=== PATIENT | female | born 1930 | race Caucasian/White ===

== ENCOUNTER 2017-09-01 17:38 | Inpatient (IN) | payer OTHER ==
[~2017-09-01] VITALS: Ht 160 cm; Wt 77.8 kg
[~2017-09-01 17:38] MED LIST: AMLODIPINE BESY1 C12 PO; AMO500 PO; APAP/HYDROCODON1 T13 PO; ASPIR LOW81 MG PO; BAY PO; CIP500 PO; COL100 PO; DYA PO; FLA250 PO; IMD60 PO; IMO2 PO; LAC PO; LIPI20 PO; MOT800 PO; NOR10 PO; PHEL PO; PRI20 PO; TEN50 PO; XAN25 PO; XOPENEX; XOPENEX HF0.045 MG/1 INH; ZOCOR40 MG PO; ZOS2I IV
[2017-09-01 17:39] VITALS: Ht 160 cm; Wt 77.8 kg
[2017-09-01 21:32] LABS: CALCIUM 8.4 mg/dL (8.5-10.1); CARBON DIOXIDE 28.6 mmol/L (21-32); CHLORIDE SERUM 88 mmol/L (98-107); CREATININE SERUM 1.2 mg/dL (0.6-1.0); GLUCOSE SERUM 131 mg/dL (74-106); POTASSIUM SERUM 3.2 mmol/L (3.5-5.1); SODIUM SERUM 127 mmol/L (136-145)
[2017-09-01 21:33] LABS: BASOPHIL % 0.2 % (0-2); PLATELET COUNT 260 x10^3mcL (130-400); RED CELL DISTRIBUTION WIDTH 12.8 % (11.5-14.5)
[2017-09-01 21:37] LABS: ALBUMIN 3.4 g/dL (3.4-5.0); ALKALINE PHOSPHATASE 106 U/L (46-116); ALT/SGPT 25 U/L (14-59); AST/SGOT 25 U/L (15-37); BILIRUBIN TOTAL 0.5 mg/dL (0.20-1.00); TOTAL PROTEIN, SERUM 7.2 g/dL (6.4-8.2)
[2017-09-01] MEDS ORDERED: GOOD SENSE OMEP20 MG PO (22:27)
[2017-09-01] MEDS ORDERED: XOPENEX HF0.045 MG/1 INH (22:27)
[2017-09-01] MEDS ORDERED: FLOVENT HF0.11 MG/A1 INH (22:27)
[2017-09-01 22:53] LABS: MAGNESIUM 1.9 mg/dL (1.8-2.4); PHOSPHOROUS 3.2 mg/dL (2.5-4.9)
[2017-09-01 22:54] LABS: CHOLESTEROL/HDL RATIO 2.3
[2017-09-01 23:05] LABS: FREE T4 2.38 ng/dL (0.76-1.46); FREE THYROXINE INDEX 3.4 ug/dL (1.4-4.5); T4(THYROXINE) 8.4 ug/dL (4.7-13.3)
[2017-09-01 23:15] LABS: T3 TOTAL 0.76 ng/mL
[2017-09-02] VITALS (7 sets, daily range): BP systolic 114–154; BP diastolic 41–55
[2017-09-02 06:40] LABS: BASOPHIL % 0.3 % (0-2); PLATELET COUNT 251 x10^3mcL (130-400); RED CELL DISTRIBUTION WIDTH 12.9 % (11.5-14.5)
[2017-09-02 06:46] LABS: CALCIUM 8.1 mg/dL (8.5-10.1); CARBON DIOXIDE 25.4 mmol/L (21-32); CHLORIDE SERUM 91 mmol/L (98-107); GLUCOSE SERUM 135 mg/dL (74-106); MAGNESIUM 1.9 mg/dL (1.8-2.4); PHOSPHOROUS 2.8 mg/dL (2.5-4.9); POTASSIUM SERUM 3.4 mmol/L (3.5-5.1); SODIUM SERUM 125 mmol/L (136-145)
[2017-09-02 14:26] LABS: UA SPECIFIC GRAVITY <=1.005 (1.005-1.035); microscopic required? YES; urine erythrocyte TRACE (NEGATIVE)
[2017-09-03 05:50] VITALS: BP 117/51
[2017-09-03 07:09] LABS: BASOPHIL % 0.7 % (0-2); PLATELET COUNT 261 x10^3mcL (130-400); RED CELL DISTRIBUTION WIDTH 13.1 % (11.5-14.5)
[2017-09-03 07:37] LABS: CALCIUM 8.5 mg/dL (8.5-10.1); CHLORIDE SERUM 95 mmol/L (98-107); CREATININE SERUM 0.7 mg/dL (0.6-1.0); GLUCOSE SERUM 115 mg/dL (74-106); MAGNESIUM 1.9 mg/dL (1.8-2.4); PHOSPHOROUS 2.6 mg/dL (2.5-4.9); POTASSIUM SERUM 4.1 mmol/L (3.5-5.1); SODIUM SERUM 129 mmol/L (136-145)
[2017-09-03 09:33] VITALS: BP 131/46
[2017-09-03 14:14] VITALS: BP 126/62
[2017-09-03] MEDS ORDERED: XARELTO20 M1 PO (15:20)
[2017-09-03 15:35] VITALS: BP 126/62
[2017-09-03] MEDS ORDERED: ATRUD HHN (16:40)
== END 2017-09-03 19:04 | disposition home or self-care (01) | DRG 202 ==
LOC: ED 17:38 → DU 22:29
PROVIDERS: Family Medicine; Specialist
DX: J45.901 Unspecified asthma with (acute) exacerbation (principal); E87.1 Hypo-osmolality and hyponatremia; I48.91 Unspecified atrial fibrillation; J06.9 Acute upper respiratory infection, unspecified; R31.29 Other microscopic hematuria; E87.6 Hypokalemia; I10 Essential (primary) hypertension; K21.9 Gastro-esophageal reflux disease without esophagitis; E78.00 Pure hypercholesterolemia, unspecified; M06.9 Rheumatoid arthritis, unspecified; Z79.82 Long term (current) use of aspirin; Z68.27 Body mass index [BMI] 27.0-27.9, adult
CPT/HCPCS: 83880; 84439; 87046; 87046-59; 87804; 94150; J1644; J7030; J7644; Q0092

== ENCOUNTER 2018-06-26 16:05 | Emergency (ER) | payer OTHER ==
[~2018-06-26] VITALS: Ht 157.5 cm; Wt 75.3 kg
[~2018-06-26 16:05] MED LIST changes: +ATRUD HHN; +FLOVENT HF0.11 MG/A1 INH; +GOOD SENSE OMEP20 MG PO; +XARELTO20 M1 PO
[2018-06-26 16:29] VITALS: Ht 157.5 cm; Wt 75.3 kg
[2018-06-26 17:24] LABS: BASOPHIL % 0.8 % (0-2); PLATELET COUNT 331 x10^3mcL (130-400); RED CELL DISTRIBUTION WIDTH 13.1 % (11.5-14.5)
[2018-06-26 17:32] LABS: CALCIUM 8.5 mg/dL (8.5-10.1); CARBON DIOXIDE 25.6 mmol/L (21-32); CHLORIDE SERUM 92 mmol/L (98-107); CREATININE SERUM 1.2 mg/dL (0.6-1.0); GLUCOSE SERUM 164 mg/dL (74-106); POTASSIUM SERUM 3.3 mmol/L (3.5-5.1); SODIUM SERUM 127 mmol/L (136-145)
[2018-06-26 17:37] LABS: ALBUMIN 3.5 g/dL (3.4-5.0); ALKALINE PHOSPHATASE 107 U/L (46-116); ALT/SGPT 43 U/L (14-59); AST/SGOT 11 U/L (15-37); BILIRUBIN TOTAL 0.47 mg/dL (0.20-1.00); TOTAL PROTEIN, SERUM 7.4 g/dL (6.4-8.2)
[2018-06-26 19:20] VITALS: BP 119/59
== END 2018-06-26 19:20 | disposition home or self-care (01) ==
LOC: ED 16:05
PROVIDERS: Emergency Medicine
DX: J06.9 Acute upper respiratory infection, unspecified (principal); J45.901 Unspecified asthma with (acute) exacerbation; I48.91 Unspecified atrial fibrillation; I10 Essential (primary) hypertension; K21.9 Gastro-esophageal reflux disease without esophagitis; E78.00 Pure hypercholesterolemia, unspecified; M06.9 Rheumatoid arthritis, unspecified; D25.9 Leiomyoma of uterus, unspecified; Z88.8 Allergy status to other drugs, medicaments and biological substances
CPT/HCPCS: 36415; Q0092

== ENCOUNTER 2018-11-03 09:35 | Inpatient (IN) | payer OTHER ==
[~2018-11-03] VITALS: Ht 160 cm; Wt 80.7 kg
[2018-11-03] VITALS (8 sets, daily range): BP systolic 115–138; BP diastolic 43–54; Ht 160 cm; Wt 80.7 kg
--- NOTE | 2018-11-03 10:00 | NUR ---
PT AMBULATED TO RESTROOM WITH MYSELF ON STANDBY INSTRUCTED ON HOW TO PROVIDE A CLEAN CATCH URINE SPECIMEN, PT VERBALIZED/DEMONSTRATED UNDERSTANDING. PT IN POSITION OF COMFORT, NAD NOTED, SPEECH IS CLEAR, ANSWERS QUESTIONS APPROPRIATELY, ON FULL CM, JOKING WITH FAMILY AT BEDSIDE. IN POSITION OF COMFORT.
--- NOTE | 2018-11-03 10:17 | NUR ---
DR LIU AT BEDSIDE FOR MSE.
--- NOTE | 2018-11-03 10:43 | NUR ---
PT'S DAUGHTERS AT BEDSIDE.
--- NOTE | 2018-11-03 10:43 | NUR ---
PER PT'S DAUGHTERS PT'S BP WAS ELEVATED THIS AM, SBP 180, STS THAT IN AUGUST PT HAD SAME S/S TODAY MINUS DIZZNESS, PT DENIES DIZZINESS TODAY, STS PT WAS ADMITTED IN AUGUST FOR NEW ONSET OF AFIB AND VERTIGO.
--- NOTE | 2018-11-03 11:30 | NUR ---
FAMILY REMAINS AT BEDSIDE.
[2018-11-03 11:56] LABS: BASOPHIL % 0.4 % (0-2); PLATELET COUNT 275 x10^3mcL (130-400)
[2018-11-03 12:09] LABS: PHOSPHOROUS 3.5 mg/dL (2.5-4.9)
[2018-11-03 12:11] LABS: CHOLESTEROL/HDL RATIO 2.7
[2018-11-03 12:16] LABS: FREE T4 1.29 ng/dL (0.76-1.46); FREE THYROXINE INDEX 2.5 ug/dL (1.4-4.5); T4(THYROXINE) 6.5 ug/dL (4.7-13.3)
[2018-11-03 12:18] LABS: microscopic required? YES; urine erythrocyte TRACE (NEGATIVE)
--- NOTE | 2018-11-03 12:28 | NUR ---
REPORT GIVEN TO SHEREE
[2018-11-03 12:46] LABS: CALCIUM 8.8 mg/dL (8.5-10.1); CARBON DIOXIDE 31.8 mmol/L (21-32); CHLORIDE SERUM 99 mmol/L (98-107); CREATININE SERUM 0.9 mg/dL (0.6-1.0); GLUCOSE SERUM 116 mg/dL (74-106); SODIUM SERUM 135 mmol/L (136-145)
[2018-11-03 12:51] LABS: ALBUMIN 3.6 g/dL (3.4-5.0); ALKALINE PHOSPHATASE 115 U/L (46-116); ALT/SGPT 32 U/L (14-59); AST/SGOT 20 U/L (15-37); BILIRUBIN TOTAL 0.5 mg/dL (0.20-1.00); TOTAL PROTEIN, SERUM 7.1 g/dL (6.4-8.2)
[2018-11-03 12:56] LABS: T3 TOTAL 0.96 ng/mL
[2018-11-03 12:58] LABS: ALBUMIN 3.6 g/dL (3.4-5.0); BILIRUBIN DIRECT 0.1 mg/dL (0.0-0.2); BILIRUBIN TOTAL 0.4 mg/dL (0.20-1.00); TOTAL PROTEIN, SERUM 7.1 g/dL (6.4-8.2)
--- NOTE | 2018-11-03 13:00 | NUR ---
PT ADMITTED FROM ER ON A GURNEY ACCOMAPANIED BY 4 FAMILY MEMBERS. REPORT GIVEN BY KEO. PT IS AAOX4 WITH C/O DIZZINESS. RESP EVEN AND UNLABORED. LUNG SOUNDS CTA. ON R/A. NO COUGH OR SOB NOTED. ABDOMEN SOFT, NONTENDER, NONDISTENDED. BOWEL SOUNDS ACTIVE. NO C/O N/V. SKIN CDI. NO EDEMA. PERIPHERAL PULSES PALPABLE. IV TO RH 20G, PATENT, N/S LOCKED. PT DENIES PAIN AT THIS TIME. PT ORIENTED TO ROOM AND CALL LIGHT. BED IN LOW POSITION. CALL LIGHT WITHIN REACH.
--- NOTE | 2018-11-03 13:38 | NUR ---
REPORTED TO DR. QUESADA THAT PT HAS TRANSITIONED INTO AFLUTTER UPON ADMISSION. 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
--- NOTE | 2018-11-03 14:39 | NUR ---
RECEIVED A NOTIFICATION FROM CHANNEL MANAGER OF PT RHYTHM WITH OFF AND ON PAUSES 1ST WAS 3.9 SECOND PAUSE AND THE 2ND WAS 3.4 SECOND PAUSE PER CHANNEL MANAGER. NOTIFIED (RESIDENT) ASSIGNED TO THIS PT AND MADE HER AWARE OF ABOVE, TOLD HER TO COME AND SEE THIS PT JULIAN. CALLED AND SPOKE TO (SIDE SAWYER)AND NOTIFIED HIM OF PT OFF AND ON PAUSES AND UPDATED HIM OF PT VS: BP-125/43 HR-40'S-50'S. MADE HIM AWARE TOO THAT PT IS IN AND OUT AFIB AND AFLUTTER. SAYS CONTINUE TO MONITOR ON TELEMETRY UNIT AND THAT PTS PAUSES ARE STILL ACCEPTABLE AND THAT HE WILL SEE THE PT THIS PM. DELFINA CUI ASSIGNED TO THIS PT MADE AWARE OF ABOVE.
--- NOTE | 2018-11-03 15:24 | NUR ---
WOOL HANDLER NOTED PT WITH 4 SECOND PAUSE. VS: 98.4, 50, 20, 126/47 (73), O2 SAT 96% ON R/A. PT DENIES PAIN OR DISCOMFORT AT THIS TIME. DAUGHTER AT BEDSIDE. CALL LIGHT WITHIN REACH. WILL CONTINUE TO MONITOR.
--- NOTE | 2018-11-03 15:25 | NUR ---
CALLED (RESIDENT) ASSIGNED TO THIS PT AND AMDE HER AWARE OF THE LATEST 4 SECONDS PAUSE THAT THE PT HAD WITH A BP-126/47. SAYS IS WELL AWARE AND TO CONTINUE MONITORING PT LONG PT BP DOESNT DROP BELOW 100. DELFINA CUI ASSIGNED TO THIS PT MADE AWARE OF ABOVE.
--- NOTE | 2018-11-03 16:25 | NUR ---
PT NOTED WITH ANOTHER 3.7 SECOND PAUSE IN HEART RHYTHM. RHYTHM STRIP TO VERIFY IN PT'S CHART. PT DENIES CHEST PAIN, PRESSURE, PALPITATIONS. CALL LIGHT WITHIN REACH. DAUGHTER AT BEDSIDE.
--- NOTE | 2018-11-03 17:07 | NUR ---
RECEIVED A CALL FROM (DIRECTOR OF PRECLINICAL RESEARCH) AND ASKING UPDATE OF PT CURRENT STATUS, MADE HIM AWARE LAST BP WAS 126/47 AND PT CONTINUES TO HAVE OFF AND ON PAUSES BUT NO LONGER THAN 4 SECONDS. MADE HIM AWARE THAT HE WILL BE NOTIFIED IF PT BP DROPS BELOW 100 AND PAUSES BECOME LONGER THAN 5 SECONDS. SAYS HE WILL COME TO SEE PT TOMORROW. DELFINA CUI ASSIGNED TO THIS PT MADE AWARE OF ABOVE. PT CURRENT BP AT THIS TIME-115/49 HR-53. WILL CONTINUE TO MONITOR.
--- NOTE | 2018-11-03 18:13 | NUR ---
PT REPORTED THE MORNING MEDS SHE TOOK TODAY 11/03/18 WERE COREG 25MG, TRIAMTERENE 37.5MG, AMLODIPINE/VALSARTAN 5/160MG, AND ISOSORBIDE MONOITRATE 60MG.
--- NOTE | 2018-11-03 18:34 | NUR ---
PT IS AAOX4. TELE [address] READING AFIB WITH BBB. RESP EVEN AND UNLABORED. PT DENIES PAIN OF DISCOMFORT. IVF RUNNNING TO LW, PATENT, SITE WNL. CALL LIGHT WITHIN REACH. FAMILY AT BEDSIDE. WILL ENDORSE ALL CARE TO NOC RN.
--- NOTE | 2018-11-03 19:59 | NUR ---
AAO X 4. SPEECH CLEAR AND APPROPRIATE. SITTING ON SIDE OF BED. MANY FAMILY MEMBERS WITH PT. BREATHING EVEN AND UNLABORED ON ROOM AIR. DENIES HAVING CHEST PAIN OR CHEST DISCOMFORT. IVF OF NS AT 80ML/HR INFUSING WELL.
--- NOTE | 2018-11-03 21:26 | NUR ---
EYES CLOSED, BREATHING UNLABORED. LAYING ON HER RIGHT SIDE. HOB ELEVATED 30 DEG. CALL LIGHT WITHIN EASY REACH. BED IN LOWEST POSITION, UPPER SIDE RAILS KEPT RAISED.
--- NOTE | 2018-11-03 22:03 | NUR ---
SINUS RHYTHM WITH 1.2 SEC PAUSES. PT ASYMPTOMATIC. BP 128/50, CO 80, RR 18. DR. ELIF WAY.
--- NOTE | 2018-11-03 22:23 | NUR ---
SINUS RHYTHM W/ BBB AND ELEVATED T WAVE. NO PAUSES NOTED AT THIS TIME. HR 66/MIN.
--- NOTE | 2018-11-04 02:28 | NUR ---
AMBULATED TO RESTROOM, GAIT STEADY. VOIDED.
--- NOTE | 2018-11-04 06:16 | NUR ---
BP 172/53, CT 59. REPEATED 164/60, CT 62. INFORMED DR. QUESADA. SHE STATED TO ADMINISTER DUE THIS AM NORVASC AND DYAZIDE NOW.
[2018-11-04 06:17] LABS: BASOPHIL % 0.4 % (0-2); PLATELET COUNT 254 x10^3mcL (130-400); RED CELL DISTRIBUTION WIDTH 12.8 % (11.5-14.5)
[2018-11-04 06:21] VITALS: BP 164/60
--- NOTE | 2018-11-04 06:23 | NUR ---
AWAKE AND ALERT, ORIENTED X 4. SPEECH CLEAR AND APPROPRIATE. BREATHING UNLABORED. STATED DID NOT SLEEP WELL LAST NIGHT BECAUSE SHE KEPT GOING TO THE RESTROOM. CALL LIGHT WITHIN EASY REACH. HOB ELEVATED 30 DEG.
[2018-11-04 06:25] LABS: CALCIUM 8.7 mg/dL (8.5-10.1); CARBON DIOXIDE 30.8 mmol/L (21-32); CHLORIDE SERUM 103 mmol/L (98-107); CREATININE SERUM 0.9 mg/dL (0.6-1.0); GLUCOSE SERUM 106 mg/dL (74-106); SODIUM SERUM 141 mmol/L (136-145)
--- NOTE | 2018-11-04 07:11 | NUR ---
SITTING ON CHAIR. BREATHING UNLABORED. SINUS RHYTHM W/ BBB. DENIES HAVING PAIN. ENDORSED TO NURSE DELFINA
--- NOTE | 2018-11-04 07:30 | NUR ---
PT IS AAOX4. DENIES DIZZINESS AND H/A. RESP EVEN AND UNLABORED. LUNG SOUNDS CTA. ON R/A. TELE [address] READING NSR WITH BBB AND INCREASED T-WAVE. ABDOMEN SOFT, NONTENDER, NONDISTENDED. BOWEL SOUNDS ACTIVE. NO C/O N/V. SKIN CDI. NO EDEMA NOTED. PERIPHERAL PULSES PALPABLE. IVF RUNNING TO L WRIST, SITE WNL, NO S/S OF INFECTION OR INFILTRATION NOTED. DENIES CHEST PAIN, PRESSURE AND PALPITATIONS. NO DISCOMFORT. CALL LIGHT WITHIN REACH. BED IN LOWEST POSTION. DAUGHTER AT BEDSIDE.
--- NOTE | 2018-11-04 09:47 | NUR ---
DUE MED GIVEN. PT SITTING UP IN CHAIR AT BEDSIDE. RESP EVEN AND UNLABORED. NO C/O CHEST PAIN, PRESSURE, OR PALPITATIONS. DAUGHTER AT BEDSIDE. CALL LIGHT WITHIN REACH.
[2018-11-04 09:55] VITALS: BP 148/40
--- NOTE | 2018-11-04 11:11 | NUR ---
PT RECEIVED P/T THERAPY WAS ABLE TO WALK INDEPENDENTLY WITH NO SOB. TOLERATED ACTIVITY WELL.
[2018-11-04 12:15] VITALS: BP 155/59
--- NOTE | 2018-11-04 13:21 | NUR ---
PT SITTING UP IN BED VISITING WITH FAMILY. DENIES CHEST PAIN, PALPITATIONS AND PRESSURE. NO S/S OF DISTRESS NOTED. RESP EVEN AND UNLABORED. CALL LIGHT WITHIN REACH.
--- NOTE | 2018-11-04 13:59 | NUR ---
DR. FARNCO MET WITH PT AND DISCUSSED POC. PT WILL NEED TO START XARELTO AGAIN. PT IS FINE TO DISCHARGE TODAY.
[2018-11-04 14:26] VITALS: BP 148/40
[2018-11-04] MEDS ORDERED: IMD60 PO (15:56)
[2018-11-04] MEDS ORDERED: LIPI20 PO (15:56)
[2018-11-04] MEDS ORDERED: EXFORGE1 TA2 PO (15:56)
--- NOTE | 2018-11-04 16:35 | NUR ---
PT REFUSED TO TAKE VALSARTAN ORDER BY DR. FRANCO UNTIL PT'S DAUGHTER SPOKE WITH DR. FRANCO. VALSARTAN NO GIVEN.
--- NOTE | 2018-11-04 16:54 | NUR ---
PT DISCHARGED TO HOME IN NO DISTRESS. DISCHARGE INSTRUCTIONS WERE REVIEWED. ALL FORMS SIGNED. DAUGHTER MARCOS WAS TAKEN TO MEDICAL RECORDS AND GIVEN FORM TO SIGN TO RELEASE PT'S MEDICAL RECORDS. RX GIVEN TO PT. IV CATH TO L WRIST REMOVED INTACT. SITE WNL. COVERED WITH GAUZE AND BANDAID. VS: 98.4, 68, 17, 148/40, 95/5 ON R/A. PT DENIES PAIN AND DISCOMFORT AT TIME OF DISCHARGE. ALL PERSONAL BELONGINGS TAKEN HOME.
== END 2018-11-04 16:55 | disposition home or self-care (01) | DRG 308 ==
LOC: ED 09:35 → DU 11:08
PROVIDERS: Emergency Medicine; General Practice; ADMIT Internal Medicine
DX: I48.0 Paroxysmal atrial fibrillation (principal); N17.0 Acute kidney failure with tubular necrosis; E87.1 Hypo-osmolality and hyponatremia; R00.1 Bradycardia, unspecified; T44.7X5A Adverse effect of beta-adrenoreceptor antagonists, initial encounter; E11.9 Type 2 diabetes mellitus without complications; J45.909 Unspecified asthma, uncomplicated; I10 Essential (primary) hypertension; E78.1 Pure hyperglyceridemia; E78.5 Hyperlipidemia, unspecified; Z79.01 Long term (current) use of anticoagulants; Z86.011 Personal history of benign neoplasm of the brain; Y92.018 Other place in single-family (private) house as the place of occurrence of the external cause; Z79.84 Long term (current) use of oral hypoglycemic drugs
CPT/HCPCS: 83880; 84439; 94150; A4371; J1650; J7030; Q0092

== ENCOUNTER 2019-03-13 16:39 | Emergency (ER) | payer OTHER ==
[~2019-03-13] VITALS: Ht 160 cm; Wt 75.7 kg
[~2019-03-13 16:39] MED LIST changes: +EXFORGE1 TA2 PO
[2019-03-13 16:50] VITALS: Ht 160 cm; Wt 75.7 kg
[2019-03-13 19:12] VITALS: BP 132/58
== END 2019-03-13 19:12 | disposition home or self-care (01) ==
LOC: ED 16:39
DX: K08.89 Other specified disorders of teeth and supporting structures (principal); J45.909 Unspecified asthma, uncomplicated; I10 Essential (primary) hypertension; K21.9 Gastro-esophageal reflux disease without esophagitis; E78.00 Pure hypercholesterolemia, unspecified; Z88.1 Allergy status to other antibiotic agents; Z91.013 Allergy to seafood; Z91.010 Allergy to peanuts
CPT/HCPCS: J0696